=== PATIENT | male | born 1960 | race Caucasian/White ===

== ENCOUNTER 2016-06-10 22:36 | Inpatient (IN) | payer BC ==
[~2016-06-10] VITALS: Ht 162.6 cm; Wt 64.9 kg
[2016-06-10 22:40] VITALS: BP 173/81; PULSE 77; RESP 20; RESP 21; TEMP 98.1; O2SAT 98; O2SAT 99
[2016-06-10 23:00] VITALS: BP 169/75; PULSE 74; RESP 16; O2SAT 99
[2016-06-10] MEDS: NITROGLYCERIN 0.4 MG SL 25 TABS/BTL SL SCH ×3 (23:20→23:40)
[2016-06-10 23:30] LABS: AUTOMATED NEUTROPHIL # 9.4 TH/MM3 (1.8-7.7); BASOPHIL # 0.1 TH/MM3 (0-0.2); BASOPHIL % 0.7 % (0.0-2.0); EOSINOPHIL # 0.2 TH/MM3 (0-0.4); EOSINOPHIL % 1.3 % (0.0-4.0); HEMATOCRIT 41.3 % (39.0-51.0); HEMO FLAGS DIFF FINAL; LYMPH % 26.1 % (9.0-44.0); LYMPHOCYTE # 3.8 TH/MM3 (1.0-4.8); MEAN CELL VOLUME 92.6 FL (80.0-100.0); MEAN CORPUSCULAR HEMOGLOBIN 30.4 PG (27.0-34.0); MEAN CORPUSCULAR HGB CONC 32.9 % (32.0-36.0); MONO % 7.4 % (0.0-8.0); NEUT % 64.5 % (16.0-70.0); PLATELET COUNT 191 TH/MM3 (150-450); RED BLOOD COUNT 4.46 MIL/MM3 (4.50-5.90); RED CELL DISTRIBUTION WIDTH 13.7 % (11.6-17.2); WHITE BLOOD COUNT 14.5 TH/MM3 (4.0-11.0)
[2016-06-10] MEDS ORDERED: HEPARIN-D5W INJ 250 ML IV SCH (23:30)
[2016-06-10] MEDS ORDERED: HEPARIN SODIUM - IV 10,000 UNITS/10 ML VIAL IV ONE (23:30)
[2016-06-10] MEDS ORDERED: ONDANSETRON HCL 4 MG/2 ML VIAL ONE (23:35)
--- NOTE | 2016-06-10 23:35 | PD ---
HPI Chief Complaint: Chest Pain Time Seen by Provider: 22:59 Travel History International Travel<30 days: No Contact w/Intl Traveler<30days: No Traveled to known affect area: No History of Present Illness HPI Patient is a 56-year-old male who presents to emergency room with complaints of chest pain. Patient reports that he woke up around 9 PM tonight from sleep and had pressure to his chest, reports that the pressure radiates to his right arm, reports that he felt diaphoretic and nauseous with his symptoms. Patient reports that he has never had chest pain in the past, denies history of hypertension, hyperlipidemia, diabetes, coronary artery disease. Patient reports that he was seen by his primary care doctor December s/ preoperative for hernia surgery and was told that he was fine and that everything was okay. Patient reports that he did receive an aspirin by EMS as well as a spray of SL nitroglycerin which seemed to help with his symptoms. Patient reports that he still continued to have increased pressure to his chest at this time. Patient endorses that his mother had history of CA and history of bypass surgery at age 51. [facility] Family History Family Myocardial Infarction: Yes (mom had CAD and bypass surgery at age 51) Social History Tobacco Use: Yes Allergies-Medications (Allergen,Severity, Reaction): Coded Allergies: Penicillin (Verified Allergy, Unknown, Hives, 06/10/16) Reported Meds & Prescriptions Reported Meds & Active Scripts Active No Active Prescriptions or Reported Medications Review of Systems General / Constitutional: No: Fever Eyes: No: Visual changes HENT: No: Headaches Cardiovascular: Positive: Chest Pain or Discomfort, Diaphoresis Respiratory: Positive: Shortness of Breath Gastrointestinal: No: Abdominal Pain Genitourinary: No: Dysuria Musculoskeletal: No: Pain Skin: No Rash Neurologic: No: Weakness Psychiatric: No: Depression Endocrine: No: Polydipsia Hematologic/Lymphatic: No: Easy Bruising Physical Exam Narrative GENERAL: On her distress SKIN: Focused skin assessment warm/dry. HEAD: Atraumatic. Normocephalic. EYES: Pupils equal and round. No scleral icterus. No injection or drainage. ENT: No nasal bleeding or discharge. Mucous membranes pink and moist. NECK: Trachea midline. No JVD. CARDIOVASCULAR: Regular rate and rhythm. No murmur appreciated. RESPIRATORY: No accessory muscle use. Clear to auscultation. Breath sounds equal bilaterally. GASTROINTESTINAL: Abdomen soft, non-tender, nondistended. Hepatic and splenic margins not palpable. MUSCULOSKELETAL: No obvious deformities. No clubbing. No cyanosis. No edema. NEUROLOGICAL: Awake and alert. Motor grossly within normal limits. Normal speech. PSYCHIATRIC: Appropriate mood and affect; insight and judgment normal. Data Data Last Documented VS Vital Signs Date Time Temp Pulse Resp B/P Pulse Ox O2 Delivery O2 Flow Rate FiO2 06/10/16 22:40 98.1 77 20 173/81 98 06/10/16 22:40 Room Air 06/10/16 22:40 2 Orders B-Type Natriuretic Peptide (06/10/16 22:57) Ckmb (Isoenzyme) Profile (06/10/16 22:57) Complete Blood Count With Diff (06/10/16 22:57) Comprehensive Metabolic Panel (06/10/16 22:57) Magnesium (Mg) (06/10/16 22:57) Prothrombin Time / Inr (Pt) (06/10/16 22:57) Act Partial Throm Time (Ptt) (06/10/16 22:57) Troponin I (06/10/16 22:57) Chest, Single Ap (06/10/16 22:57) Ecg Monitoring (06/10/16 22:57) Bilateral Bp Monitoring (06/10/16 22:57) Iv Access Insert/Monitor (06/10/16 22:57) Oximetry (06/10/16 22:57) Nitroglycerin Sl (Nitrostat Sl) (06/10/16 23:30) Heparin Infusion ADRIA.Q1H (06/10/16 23:22) Heparin Inj (Heparin Inj) (06/11/16 05:30) Heparin Inj (Heparin Inj) (06/11/16 05:30) Heparin-D5w Inj (Heparin-D5w Inj) (06/10/16 23:30) Cbc No Diff, Includes Plts (06/13/16 06:00) Act Partial Throm Time (Ptt) (06/11/16 06:22) Occult Blood (Hemoccult) Stool (06/10/16 23:22) Heparin Inj (Heparin Inj) (06/10/16 23:30) Consult Cardiology (06/10/16 ) Ondansetron Inj (Zofran Inj) (06/10/16 23:45) Ondansetron Inj (Zofran Inj) (06/10/16 23:35) (Hub Use Only)Inp Phy Cons/Ref (06/10/16 ) CKMB (06/10/16 22:50) CKMB% (06/10/16 22:50) Nitroglycerin-Dextrose Inj (Nitroglyceri (06/11/16 00:30) Labs Laboratory Tests Test 06/10/16 22:50 White Blood Count 14.5 TH/MM3 Red Blood Count 4.46 MIL/MM3 Hemoglobin 13.6 GM/DL Hematocrit 41.3 % Mean Corpuscular Volume 92.6 FL Mean Corpuscular Hemoglobin 30.4 PG Mean Corpuscular Hemoglobin 32.9 % Concent Red Cell Distribution Width 13.7 % Platelet Count 191 TH/MM3 Mean Platelet Volume 8.9 FL Neutrophils (%) (Auto) 64.5 % Lymphocytes (%) (Auto) 26.1 % Monocytes (%) (Auto) 7.4 % Eosinophils (%) (Auto) 1.3 % Basophils (%) (Auto) 0.7 % Neutrophils # (Auto) 9.4 TH/MM3 Lymphocytes # (Auto) 3.8 TH/MM3 Monocytes # (Auto) 1.1 TH/MM3 Eosinophils # (Auto) 0.2 TH/MM3 Basophils # (Auto) 0.1 TH/MM3 CBC Comment DIFF FINAL Differential Comment B-Type Natriuretic Peptide 6 PG/ML Prothrombin Time 9.4 SEC Prothromb Time International 0.9 RATIO Ratio Activated Partial 24.8 SEC Thromboplast Time Sodium Level 143 MEQ/L Potassium Level 3.9 MEQ/L Chloride Level 107 MEQ/L Carbon Dioxide Level 27.5 MEQ/L Anion Gap 9 MEQ/L Blood Urea Nitrogen 14 MG/DL Creatinine 0.99 MG/DL Estimat Glomerular Filtration 78 ML/MIN Rate Random Glucose 112 MG/DL Calcium Level 8.6 MG/DL Magnesium Level 2.3 MG/DL Total Bilirubin 0.4 MG/DL Aspartate Amino Transf 51 U/L (AST/SGOT) Alanine Aminotransferase 113 U/L (ALT/SGPT) Alkaline Phosphatase 100 U/L Total Creatine Kinase 102 U/L Creatine Kinase MB 1.3 NG/ML Troponin I LESS THAN 0.02 NG/ML Total Protein 6.5 GM/DL Albumin 3.6 GM/DL MDM Medical Decision Making Medical Screen Exam Complete: Yes Emergency Medical Condition: Yes Interpretation(s) Vital Signs Date Time Temp Pulse Resp B/P Pulse Ox O2 Delivery O2 Flow Rate FiO2 06/10/16 22:40 98.1 77 20 173/81 98 EKG at 2249: Normal sinus rhythm at 66 bpm, QT/QTC 362/375, 1mm st seg elevation in V1 and V2 with no reciprical changes EKG at 2311: NSR at 77bpm, qt/qtc: 354/385, [address] segment elevation in V1 and V2 with no reciprical changes Differential Diagnosis ACS, arrhythmia, PE, pneumothorax, electrolyte abnormality Narrative Course Patient is 56-year-old male who presents to emergency with complaints of chest pain. Patient reports that he woke up from sleep around 9 PM with pain across his chest radiating into his right arm. Patient reports that pain feels like a "pressure to his chest", he associates this with diaphoresis and nausea with his symptoms. Patient reported some relief with 1SL nitro by EMS. Patient continues to have symptoms while in the emergency room. Patient was placed on a vehicle monitor technician upon arrival to emergency room. X-ray the chest as well as labwork ordered. Call made to coat finisher Dr. Kramer to review case, request heparin, heparin drip, nitro drip, plan to treat him aggressively admit him to the [facility] Patient currently chest pain-free at this time Case reviewed with who accepts pt to service Critical Care Narrative Aggregate critical care time was 30 minutes. Time to perform other separately billable procedures was not included in the critical care time. My time did not include minutes spent treating any other patients simultaneously or on activities that did not directly contribute to the patient's treatment. The services I provided to this patient were to treat and/or prevent clinically significant deterioration that could result in: , decompensation, deterioration I provided critical care services requiring my management, as noted below: Chart data review, documentation time, medication orders and management, vital sign assessments/reviewing monitor data, ordering and reviewing lab tests, ordering and interpreting/reviewing x-rays and diagnostic studies, care of the patient and discussion of the patient with the admitting physicians. Diagnosis Primary Impression: Unstable angina Admitting Information Admitting Physician Requests: Admit Scripts No Active Prescriptions or Reported Meds Penny Heller DO Jun 10, 2016 23:35
[2016-06-10] MEDS ORDERED: ONDANSETRON HCL 4 MG/2 ML VIAL IV PUSH ONE (23:45)
[2016-06-10 23:49] LABS: ALKALINE PHOSPHATASE 100 U/L (45-117); CREATINE KINASE 102 U/L (39-308); TOTAL BILIRUBIN ADULT 0.4 MG/DL (0.2-1.0)
--- NOTE | 2016-06-10 23:49 | RADRPT ---
EXAM DATE/TIME: 06/10/2016 23:11 [place] COMPARISON: No previous studies available for comparison. INDICATIONS : Chest pressure. MEDICAL HISTORY : None. SURGICAL HISTORY : None. ENCOUNTER: Initial ACUITY: 1 day PAIN SCORE: 3/10 LOCATION: Bilateral chest FINDINGS: A single view of the chest demonstrates the lungs to be symmetrically aerated without evidence of mas s, infiltrate or effusion. The cardiomediastinal contours are unremarkable. Osseous structures are intact. CONCLUSION: No acute disease. Jermaine Santos MD on June 10, 2016 at 23:47 Board Certified Radiologist. This report was verified electronically.
[2016-06-11] VITALS (20 sets, daily range): BP systolic 99–154; BP diastolic 58–89; PULSE 61–89; RESP 14–18; TEMP 98–98.7; O2SAT 96–98
[2016-06-11] LABS: ALT (GPT) 113 U/L (12-78); ANION GAP 9 MEQ/L (5-15); AST (GOT) 51 U/L (15-37); BICARBONATE 27.5 MEQ/L (21.0-32.0); BLOOD UREA NITROGEN 14 MG/DL (7-18); CHLORIDE 107 MEQ/L (98-107); GLOMERULAR FILTRATION RATE 78 ML/MIN (>89); MAGNESIUM 2.3 MG/DL (1.5-2.5); POTASSIUM 3.9 MEQ/L (3.5-5.1); SODIUM (NA) 143 MEQ/L (136-145)
[2016-06-11 00:01] LABS: CKMB 1.3 NG/ML (0.5-3.6)
[2016-06-11 00:10] LABS: APTT (PATIENT) 24.8 SEC (24.3-30.1); INTERNATIONAL NORMALIZED RATIO 0.9 RATIO; PROTHROMBIN TIME - PATIENT 9.4 SEC (9.8-11.6)
[2016-06-11] MEDS ORDERED: NITROGLYCERIN-DEXTROSE INJ 250 ML IV SCH (00:30)
[2016-06-11] MEDS ORDERED: MORPHINE SULFATE 4 MG/ML INJ IV PUSH PRN (01:00)
[2016-06-11] MEDS ORDERED: SODIUM CHLORIDE 0.9% FLUSH 10 ML FLUSH IV FLUSH PRN (01:00)
[2016-06-11] MEDS ORDERED: NALOXONE HCL 0.4 MG/ML AMP IV PRN (01:00)
[2016-06-11] MEDS ORDERED: ACETAMINOPHEN 325 MG TAB PO PRN ×2 (01:00→15:45)
[2016-06-11] MEDS ORDERED: ONDANSETRON HCL 4 MG/2 ML VIAL IVP PRN ×2 (01:00→15:45)
[2016-06-11] MEDS: SODIUM CHLOR 0.9% 1000 ML INJ 1,000 ML IV SCH ×2 (02:53→20:53)
--- NOTE | 2016-06-11 04:37 | HHI.HP ---
[facility] Service [place] [facility] Primary Care Physician Non-Staff Admission Diagnosis Unstable Angina Diagnoses: Chief Complaint: Chest pain Travel History International Travel<30 Days: No Contact w/Intl Traveler <30 Da: No Traveled to Known Affected Are: No History of Present Illness This is a pleasant 56-year-old male patient who denies prior medical history. Does smoke cigarettes proximal one pack per day and has a family medical history his mother had a coronary artery bypass graft at 51 years old. Patient is currently here on vacation from [place]. Patient drove from [place] arrived Thursday 2 days ago. Patient reports he awoke from sleep with severe midsternal pressure like chest pain associated with bilateral upper extremity numbness, SOB and diaphoresis. Patient waited about 30 mins pain and symptoms did not resolve. Patient then call 911 was given nitroglycerin spray by EMS which lessened his chest pain but it did not resolve completely. Chest pain resolved after arrival to the ER and additional nitroglycerin. At this time patient denies chest pain shortness of breath nausea vomiting diarrhea constipation fevers or chills. Of note patient was on Prednisone last week for R shoulder pain. EKG upon arrival to the emergency department reviewed and reveals sinus rhythm rate of [address] elevation in V1 and V2- no reciprocal changes appreciated Review of Systems Except as stated in HPI: all other systems reviewed are Neg Past Family Social History Past Medical History denies prior medical history Past Surgical History L inguinal hernia repair Reported Medications No Active Prescriptions or Reported Medications Allergies: Coded Allergies: Penicillin (Verified Allergy, Unknown, Hives, 06/10/16) Active Ordered Medications Current Medications Medications (Trade) Dose Ordered Sig/Roxana Route Start Time Stop Time Status Last Admin (Heparin Inj) 5,000 units UNSCH PRN IV 06/11/16 05:30 Heparin Sodium (Porcine) 2500 units 2,500 units UNSCH PRN IV 06/11/16 05:30 Heparin Sodium/ Dextrose 250 ml @ 0 mls/hr TITRATE IV 06/10/16 23:30 06/10/16 23:35 Nitroglycerin/ Dextrose 250 ml @ 0 mls/hr TITRATE IV 06/11/16 00:30 06/11/16 00:43 (NS 1000 ml Inj) 1,000 ml @ 50 mls/hr Q20H IV 06/11/16 00:53 06/11/16 02:53 (NS Flush) 2 ml UNSCH PRN IV FLUSH 06/11/16 01:00 (NS Flush) 2 ml BID IV FLUSH 06/11/16 09:00 (Tylenol) 650 mg Q4H PRN PO 06/11/16 01:00 (Zofran Inj) 4 mg Q6H PRN IVP 06/11/16 01:00 (Narcan Inj) 0.4 mg UNSCH PRN IV 06/11/16 01:00 (Morphine Inj) 2 mg Q3H PRN IV PUSH 06/11/16 01:00 Family History Mother had CAD- CABG 51 years old Social History ETOH beer 2-3 per week Tobacco use 1 PPD Physical Exam Vital Signs Vital Signs Date Time Temp Pulse Resp B/P Pulse Ox O2 Delivery O2 Flow Rate FiO2 06/11/16 01:58 98 Nasal Cannula 2.00 06/10/16 22:40 98.1 77 20 173/81 98 06/10/16 22:40 77 21 97 Room Air 06/10/16 22:40 21 99 Nasal Cannula 2 Physical Exam GENERAL: This is a well-nourished, well-developed patient, in no apparent distress. SKIN: No rashes, ecchymoses or lesions. Cool and dry. HEAD: Atraumatic. Normocephalic. No temporal or scalp tenderness. EYES: Extraocular motions intact. No scleral icterus. No injection or drainage. CARDIOVASCULAR: Regular rate and rhythm without murmurs, gallops, or rubs. RESPIRATORY: Clear to auscultation. Breath sounds equal bilaterally. No wheezes , rales, or rhonchi. GASTROINTESTINAL: Abdomen soft, non-tender, nondistended. No guarding. MUSCULOSKELETAL: Extremities without clubbing, cyanosis, or edema. No joint tenderness, effusion, or edema noted. No calf tenderness. Negative Homans sign bilaterally. NEUROLOGICAL: Awake and alert. no focal deficits. Motor and sensory grossly within normal limits. Five out of 5 muscle strength in all muscle groups. Normal speech. Laboratory Laboratory Tests Test 06/10/16 22:50 White Blood Count 14.5 Red Blood Count 4.46 Hemoglobin 13.6 Hematocrit 41.3 Mean Corpuscular Volume 92.6 Mean Corpuscular Hemoglobin 30.4 Mean Corpuscular Hemoglobin 32.9 Concent Red Cell Distribution Width 13.7 Platelet Count 191 Mean Platelet Volume 8.9 Neutrophils (%) (Auto) 64.5 Lymphocytes (%) (Auto) 26.1 Monocytes (%) (Auto) 7.4 Eosinophils (%) (Auto) 1.3 Basophils (%) (Auto) 0.7 Neutrophils # (Auto) 9.4 Lymphocytes # (Auto) 3.8 Monocytes # (Auto) 1.1 Eosinophils # (Auto) 0.2 Basophils # (Auto) 0.1 CBC Comment DIFF FINAL Differential Comment B-Type Natriuretic Peptide 6 Prothrombin Time 9.4 Prothromb Time International 0.9 Ratio Activated Partial 24.8 Thromboplast Time Sodium Level 143 Potassium Level 3.9 Chloride Level 107 Carbon Dioxide Level 27.5 Anion Gap 9 Blood Urea Nitrogen 14 Creatinine 0.99 Estimat Glomerular Filtration 78 Rate Random Glucose 112 Calcium Level 8.6 Magnesium Level 2.3 Total Bilirubin 0.4 Aspartate Amino Transf 51 (AST/SGOT) Alanine Aminotransferase 113 (ALT/SGPT) Alkaline Phosphatase 100 Total Creatine Kinase 102 Creatine Kinase MB 1.3 Troponin I LESS THAN 0.02 Total Protein 6.5 Albumin 3.6 Result Diagram: 06/10/16224906/10/162249 Assessment and Plan Assessment and Plan This is a pleasant 56-year-old male patient who denies prior medical history. Does smoke cigarettes proximal one pack per day and has a family medical history his mother had a coronary artery bypass graft at 51 years old. Patient is currently here on vacation from [place]. Patient drove from [place] arrived Thursday 2 days ago. Patient reports he awoke from sleep with severe midsternal chest pain associated with bilateral upper extremity numbness, SOB and diaphoresis. Unstable angina/ STEMI EKG reviewed by myself as well as Dr. Paul reveals sinus rhythm rate [address] elevation in V1 and V2 no reciprocal changes appreciated initial troponin < 0.02 continue with serial troponin serial EKGs Lipid profile- but had not initiated statin therapy as ALT is 51 and AST 113 Consult cardiology- ER MD spoke with cardiology recommended nitro drip and hep drip Recent extended travel d dimer pending Leukocytosis with blood cell count 14.5- no signs of active infection likely reactive continue to monitor denies dysuria Chest x-ray reviewed by myself as well as Dr. Paul and reveals no acute disease process DVT prophylaxis patient is currently on heparin drip Discussed with ER provider, nursing and patient Written by Qing Curtis, acting as scribe for Dr. Paul on 06/11/16 at 04: 57. This note was transcribed by scribe [Qing Curtis]. I, Dr. Luly Paul personally performed the history, physical exam, and medical decision making; and confirmed the accuracy of the information in the transcribed note. Authenticated by Dr. Luly Paul on 06/11/16 at 04:57. Physician Certification 2 Midnight Certification Type: Admission for Inpatient Services Order for Inpatient Services The services are ordered in accordance with Medicare regulations or non- Medicare payer requirements, as applicable. In the case of services not specified as inpatient-only, they are appropriately provided as inpatient services in accordance with the 2-midnight benchmark. Estimated LOS (days): 3 days is the estimated time the patient will need to remain in the hospital, assuming treatment plan goals are met and no additional complications. Post-Hospital Plan: Home Qing Curtis Jun 11, 2016 04:37 Luly Paul MD June 30, 2016 04:58
[2016-06-11 05:06] LABS: APTT (PATIENT) 31.9 SEC (24.3-30.1)
[2016-06-11 05:27] LABS: ALT (GPT) 139 U/L (12-78); ANION GAP 8 MEQ/L (5-15); AST (GOT) 83 U/L (15-37); BICARBONATE 24.1 MEQ/L (21.0-32.0); BLOOD UREA NITROGEN 13 MG/DL (7-18); CHLORIDE 108 MEQ/L (98-107); GLOMERULAR FILTRATION RATE 90 ML/MIN (>89); POTASSIUM 4.5 MEQ/L (3.5-5.1); SODIUM (NA) 140 MEQ/L (136-145)
[2016-06-11 05:30] LABS: ALKALINE PHOSPHATASE 105 U/L (45-117); TOTAL BILIRUBIN ADULT 0.7 MG/DL (0.2-1.0)
[2016-06-11] MEDS ORDERED: HEPARIN SODIUM - IV 10,000 UNITS/10 ML VIAL IV PRN ×2 (05:30)
[2016-06-11] MEDS: SODIUM CHLORIDE 0.9% FLUSH 10 ML FLUSH IV FLUSH SCH ×2 (09:29→20:22)
[2016-06-11] MEDS: CARVEDILOL 3.125 MG TAB PO SCH ×2 (09:29→20:21)
[2016-06-11] MEDS ORDERED: IOHEXOL 350 MG/ML 100 ML BTL (for Cath Lab) OTHER ONE (10:24)
--- NOTE | 2016-06-11 11:45 | EKG ---
Date Performed: 06/11/2016 Time Performed: 05:05:47 PTAGE: 56 years EKG: Sinus rhythm BORDERLINE LEFT AXIS DEVIATION POSSIBLE RIGHT VENTRICULAR CONDUCTION DELAY BORDERLINE ECG PREVIOUS TRACING : 06/10/2016 22.49 DOCTOR: Kane Olmedo Interpretating Date/Time 06/11/2016 11:43:40
--- NOTE | 2016-06-11 11:54 | EKG ---
Date Performed: 06/10/2016 Time Performed: 23:11:12 PTAGE: 56 years EKG: Sinus rhythm POSSIBLE RIGHT VENTRICULAR CONDUCTION DELAY BORDERLINE ECG NO PREVIOUS TRACING DOCTOR: Kane Olmedo Interpretating Date/Time 06/11/2016 11:51:01
--- NOTE | 2016-06-11 11:55 | EKG ---
Date Performed: 06/10/2016 Time Performed: 22:49:01 PTAGE: 56 years EKG: Sinus rhythm POSSIBLE RIGHT VENTRICULAR CONDUCTION DELAY SEPTAL MYOCARDIAL INFARCTION ABNORMAL ECG NO PREVIOUS TRACING DOCTOR: Kane Olmedo Interpretating Date/Time 06/11/2016 11:51:05
[2016-06-11] MEDS ORDERED: HEPARIN-NS/PF INJ 500 ML ONE (13:46)
[2016-06-11] MEDS ORDERED: MIDAZOLAM HCL 2 MG/2 ML VIAL ONE (13:48)
[2016-06-11] MEDS ORDERED: VERAPAMIL HCL 5 MG/2 ML VIAL ONE (13:49)
[2016-06-11] MEDS ORDERED: HEPARIN SODIUM - IV 10,000 UNITS/10 ML VIAL ONE (13:50)
[2016-06-11] MEDS ORDERED: NITROGLYCERIN INJ 5 ML ONE (13:50)
[2016-06-11 14:38] LABS: HDL CHOLESTEROL 51.6 MG/DL (40.0-60.0)
[2016-06-11] MEDS ORDERED: SODIUM CHLOR 0.9% 250 ML INJ 250 ML ONE (15:12)
[2016-06-11] MEDS ORDERED: VANCOMYCIN HCL 1000 MG VIAL ONE (15:12)
[2016-06-11] MEDS ORDERED: TICAGRELOR 90 MG TAB PO ONE (15:15)
[2016-06-11] MEDS ORDERED: ASPIRIN 325 MG TAB ONE (15:44)
[2016-06-11] MEDS ORDERED: oxyCODONE/ACETAMINOPHEN 5 MG/325 MG TAB PO PRN (15:45)
[2016-06-11] MEDS ORDERED: oxyCODONE/ACETAMINOPHEN 10 MG/325 MG TAB PO PRN (15:45)
[2016-06-11] MEDS ORDERED: MISC INFORMATION XX ONE (15:45)
[2016-06-11] MEDS: TICAGRELOR 90 MG TAB PO SCH (20:22)
[2016-06-11] MEDS ORDERED: ATORVASTATIN 80 MG TAB PO SCH (21:00)
--- NOTE | 2016-06-11 21:02 | EC ---
Study Study Date:06/11/2016 STUDY CONCLUSIONS SUMMARY LEFT VENTRICLE: The cavity size was normal. Systolic function was normal. The estimated ejection fraction was in the range of 55% to 60%. Wall motion was normal; there were no regional wall motion abnormalities. Left ventricular diastolic function parameters were normal. If LV function is below 40, please consider prescribing an ACEI or ARB or document rationale for non-use. PROCEDURE DATA STUDY STATUS: Elective. Procedure: Transthoracic echocardiography. Image quality was good. Scanning was performed from the parasternal, apical, and subcostal acoustic windows. Study completion: The patient tolerated the procedure well. Transthoracic echocardiography. M-mode, complete 2D, complete spectral Doppler, and color Doppler. Height: Height: 65in. Weight: Weight: 144.7lb. Body mass index: BMI: 24.1kg/m^2. Body surface area: BSA: 1.73m^2. Patient status: Inpatient. CARDIAC ANATOMY LEFT VENTRICLE: The cavity size was normal. There was no hypertrophy. Systolic function was normal. The estimated ejection fraction was in the range of 55% to 60%. Wall motion was normal; there were no regional wall motion abnormalities. Left ventricular diastolic function parameters were normal. AORTIC VALVE: The valve appears to be grossly normal. Probably trileaflet. Doppler: There was no stenosis. No significant regurgitation. Valve area: 2.11cm^2 (Vmax). Indexed valve area: 1.22cm^2/m^2 (Vmax). Peak gradient: 11mm Hg (S). MITRAL VALVE: The valve appears to be grossly normal. Doppler: There was no evidence for stenosis. Trace regurgitation. Valve area by pressure half-time: 2.72cm^2. Indexed valve area by pressure half-time: 1.57cm^2/m^2. Mean gradient: 2mm Hg (D). Peak gradient: 5mm Hg (D). LEFT ATRIUM: The atrium was normal in size. RIGHT VENTRICLE: The cavity size was normal. PULMONIC VALVE: Not well visualized. Doppler: There was no evidence for stenosis. No significant regurgitation. TRICUSPID VALVE: The valve appears to be grossly normal. Doppler: There was no evidence for stenosis. Trace regurgitation. Peak gradient: 13mm Hg (D). PERICARDIUM: There was no pericardial effusion. Patient weight: 144.7lb _Ejection fraction:_ 65-75% _Fractional shortening:_ 32% up to 5Kg 5-11.5Kg 11.6-22.9Kg 23-45Kg 45-57Kg Aortic Root 7-13 <17 13-22 17-27 17-27 LA diam 6-13 <23 24-38 33-47 37-40 RVID 10-17 7-15 7-15 7-18 8-17 LVIDd 12-22 <32 24-38 33-47 37-40 LVPW 2-4 3-6 5-7 6-8 7-8 IVS 2-4 3-6 5-7 6-8 7-8 BASIC MEASUREMENTS ADULT NORMAL Left ventricle LV internal dimension, ED, chordal *37.7 mm 43-52 level, PLAX LV internal dimension, ES, chordal 26.4 mm 23-38 level, PLAX Fractional shortening, chordal level, 30 % >29 PLAX LV posterior wall thickness, ED 11.1 mm IVS/LVPW ratio, ED 1 <1.3 Volume, ED, MOD, 1-plane 77 ml Volume, ES, MOD, 1-plane 34 ml Ejection fraction, MOD, 1-plane 56 % Stroke volume, MOD, 1-plane 43 ml Volume index, ED, MOD, 1-plane 45 ml/m^2 Volume index, ES, MOD, 1-plane 20 ml/m^2 Stroke index, MOD, 1-plane 24.9 ml/m^2 Ventricular septum Septal thickness, ED 11.1 mm Aortic valve Leaflet separation 19 mm 15-26 Left atrium Anterior-posterior dimension 33 mm Anterior-posterior dimension index 1.91 cm/m^2 <2.2 Right ventricle RV internal dimension, ED, PLAX 26 mm 19-38 BASIC MEASUREMENTS ADULT NORMAL Aortic valve Leaflet separation 19 mm 15-26 Aorta Root diameter, ED 30 mm 20-37 DOPPLER MEASUREMENTS ADULT NORMAL Aortic valve Peak velocity, S 164 cm/s VTI, S 34.8 cm Peak gradient, S 11 mm Hg Valve area, Vmax 2.11 cm^2 Valve area index, Vmax 1.22 cm^2/m^2 Mitral valve Peak E-wave velocity 96.7 cm/s Peak A-wave velocity 82.9 cm/s Mean velocity, D 69.3 cm/s Pressure half-time 81 ms Mean gradient, D 2 mm Hg Peak gradient, D 5 mm Hg Peak E/A ratio 1.2 Valve area, pressure half-time 2.72 cm^2 Valve area index, pressure half-time 1.57 cm^2/m^2 Tricuspid valve Peak gradient, D 13 mm Hg Maximal inflow velocity 178 cm/s Systemic veins Estimated CVP 10 mm Hg Pulmonic valve Peak velocity, S 102 cm/s LEGEND: Mean values are shown as u=mean value. Asterisk (*) mckeon values outside specified normal range. Prepared and signed by Jose Raul Bryan [id number]
[2016-06-12] VITALS (11 sets, daily range): BP systolic 136–138; BP diastolic 75–88; PULSE 57–90; RESP 14–18; TEMP 98–98.8; O2SAT 98
[2016-06-12 06:14] LABS: AUTOMATED NEUTROPHIL # 6.8 TH/MM3 (1.8-7.7); BASOPHIL # 0.1 TH/MM3 (0-0.2); BASOPHIL % 0.6 % (0.0-2.0); EOSINOPHIL # 0.2 TH/MM3 (0-0.4); EOSINOPHIL % 1.4 % (0.0-4.0); HEMATOCRIT 39.5 % (39.0-51.0); HEMO FLAGS DIFF FINAL; LYMPHOCYTE # 2.5 TH/MM3 (1.0-4.8); MEAN CELL VOLUME 93.5 FL (80.0-100.0); MEAN CORPUSCULAR HEMOGLOBIN 30.9 PG (27.0-34.0); MEAN CORPUSCULAR HGB CONC 33.1 % (32.0-36.0); MONO % 9.9 % (0.0-8.0); NEUT % 64.1 % (16.0-70.0); PLATELET COUNT 167 TH/MM3 (150-450); RED BLOOD COUNT 4.22 MIL/MM3 (4.50-5.90); RED CELL DISTRIBUTION WIDTH 14.1 % (11.6-17.2); WHITE BLOOD COUNT 10.6 TH/MM3 (4.0-11.0)
[2016-06-12 07:06] LABS: TOTAL BILIRUBIN ADULT 1.1 MG/DL (0.2-1.0)
--- NOTE | 2016-06-12 07:22 | MB ---
cc: JOSE RAUL PAULINO DO DATE OF CONSULTATION June 11, 2016 REASON FOR CONSULTATION N-STEMI. HISTORY OF PRESENT ILLNESS Jermaine Maradiaga is a pleasant 56-year-old male who presented to [facility] on June 10, 2016, due to chest pain. He is vacationing here from [place] and drove down here a few days before. He was at home and he was awoken from sleep with severe midsternal chest pain and bilateral upper extremity numbness. He also was short of breath and diaphoretic with the episode. He waited for about 30 per minutes and his symptoms did not resolve so he called 9-1-1. He was given nitroglycerin spray by EMS which lessened his chest pain. While in the emergency room, he was started on a heparin drip and nitro drip which relieved his chest pain. He did have mild elevation of his ST segments in V1 and V2 but no reciprocal changes. In seeing him this morning he is currently chest pain-free without shortness of breath. PAST MEDICAL HISTORY Denies. PAST SURGICAL HISTORY Left inguinal hernia repair. ALLERGIES PENICILLIN. MEDICATIONS Denies. FAMILY HISTORY Mother had a history of coronary artery disease with coronary artery bypass grafting at the age of 51. SOCIAL HISTORY Drinks two to three beers per week. Denies drug abuse. Does smoke one pack per day. REVIEW OF SYSTEMS Fourteen systems were reviewed including osteopathic pertinent positives and negatives above, otherwise negative. PHYSICAL EXAMINATION VITAL SIGNS: Temperature 98.6, heart rate 70, blood pressure 108/71, respirations 18, pulse ox 96% on room air. GENERAL: The patient appears well, in no acute distress, alert, awake and oriented x 3. Extraocular muscles intact. Mucous membranes moist. NECK: Supple. No JVD at 45 degrees. No carotid bruits heard bilaterally. Carotid upstroke is brisk in nature. HEART: Regular rate and rhythm. Positive first and second heart sounds with no noted murmurs, gallops or rubs. LUNGS: Clear to auscultation bilaterally. No wheezes, rales or rhonchi. ABDOMEN: Soft, nontender, nondistended. No organomegaly noted. EXTREMITIES: No clubbing, cyanosis or edema. Femoral and distal pulses intact bilaterally. NEUROLOGIC: No focal deficits. SKIN: Warm, dry and intact. OSTEOPATHIC EXAM: No kyphoscoliosis, lordosis or paraspinal tender points. LABORATORY FINDINGS Hemoglobin 13.6, hematocrit 41.3, platelets 191. Potassium 4.5, BUN 13, creatinine 0.87. Troponin 2.79. Triglycerides 148, total cholesterol 243, LDL 162, HDL 51.6. ELECTROCARDIOGRAM (June 11, 2016 at 05:05) Sinus rhythm, borderline left axis deviation, right ventricular conduction delay. IMPRESSION 1. N-STEMI. 2. Premature coronary artery disease within the family with his mother having coronary artery bypass grafting at the age of 51. 3. Chest pain concerning for coronary insufficiency. 4. Tobacco abuse. RECOMMENDATIONS 1. Mr. Maradiaga presented with chest pain and an elevation of his troponins. Because of this he was recommended cardiac catheterization. He understands the risks, benefits and alternatives and consents as such. 2. We will check a 2-D echo to look at his overall left ventricular function, cardiac structure and possible valvopathies. 3. I spoke to him for greater than 3 minutes about tobacco cessation which he will attempt to quit at this time. 4. Further recommendations will be made after coronary visualization. Thank you for allowing me to see Jermaine Maradiaga. If there are any questions, please do not hesitate to call. Jose Raul Paulino DO VGP/SSB /12:29 AM /7:14 AM
[2016-06-12] MEDS ORDERED: CARV3.125 PO (08:56)
[2016-06-12] MEDS ORDERED: BRIL90TA PO (08:56)
[2016-06-12] MEDS ORDERED: LISI-519 PO (08:56)
[2016-06-12] MEDS ORDERED: ATOR1TAB18 PO (08:56)
[2016-06-12] MEDS ORDERED: Aspirin Chew PO (08:56)
[2016-06-12] MEDS ORDERED: LISINOPRIL 5 MG TAB PO SCH (09:00)
[2016-06-12] MEDS ORDERED: ASPIRIN 81 MG CHEW TAB PO SCH (09:00)
[2016-06-12] MEDS: CARVEDILOL 3.125 MG TAB PO SCH (09:12)
[2016-06-12] MEDS: SODIUM CHLORIDE 0.9% FLUSH 10 ML FLUSH IV FLUSH SCH (09:13)
[2016-06-12] MEDS: TICAGRELOR 90 MG TAB PO SCH (09:13)
--- NOTE | 2016-06-12 10:56 | PD.CARD.PN ---
Subjective Subjective Remarks No chest pain, no shortness of breath Objective Medications Current Medications Medications (Trade) Dose Ordered Sig/Roxana Route Start Time Stop Time Status Last Admin Nitroglycerin/ Dextrose 250 ml @ 0 mls/hr TITRATE IV 06/11/16 00:30 06/11/16 00:43 (NS 1000 ml Inj) 1,000 ml @ 50 mls/hr Q20H IV 06/11/16 00:53 06/11/16 02:53 (NS Flush) 2 ml UNSCH PRN IV FLUSH 06/11/16 01:00 (NS Flush) 2 ml BID IV FLUSH 06/11/16 09:00 06/12/16 09:13 (Tylenol) 650 mg Q4H PRN PO 06/11/16 01:00 06/11/16 12:12 (Narcan Inj) 0.4 mg UNSCH PRN IV 06/11/16 01:00 (Morphine Inj) 2 mg Q3H PRN IV PUSH 06/11/16 01:00 (Coreg) 3.125 mg Q12HR PO 06/11/16 09:00 06/12/16 09:12 (Tylenol) 325 mg Q4H PRN PO 06/11/16 15:45 (Percocet 5-325 Mg) 1 tab Q4H PRN PO 06/11/16 15:45 (Percocet 10-325 Mg) 1 tab Q4H PRN PO 06/11/16 15:45 (Zofran Inj) 4 mg Q6H PRN IVP 06/11/16 15:45 (Aspirin Chew) 81 mg DAILY PO 06/12/16 09:00 06/12/16 09:12 (Brilinta) 90 mg BID PO 06/11/16 21:00 06/12/16 09:13 (Prinivil) 5 mg DAILY PO 06/12/16 09:00 06/12/16 09:12 (Lipitor) 80 mg HS PO 06/11/16 21:00 06/11/16 20:22 Vital Signs / I&O Vital Signs Date Time Temp Pulse Resp B/P Pulse Ox O2 Delivery O2 Flow Rate FiO2 06/12/16 10:00 75 06/12/16 09:00 89 06/12/16 08:24 72 06/12/16 08:24 98.0 69 18 138/88 98 06/12/16 07:00 57 06/12/16 06:00 60 06/12/16 05:00 60 06/12/16 04:00 66 06/12/16 03:00 98.8 74 14 136/75 98 06/12/16 03:00 62 06/12/16 02:00 62 06/12/16 01:00 90 06/12/16 00:00 66 06/11/16 23:00 63 06/11/16 23:00 98.7 66 14 99/58 97 06/11/16 23:00 96 21 06/11/16 22:00 68 06/11/16 21:00 62 06/11/16 20:00 64 06/11/16 19:00 64 06/11/16 19:00 98.0 66 14 124/74 97 06/11/16 18:31 69 06/11/16 17:20 89 06/11/16 16:00 71 06/11/16 15:53 98.4 63 18 154/89 97 06/11/16 12:04 66 06/11/16 11:45 96 21 06/11/16 11:25 98.6 70 18 108/71 96 06/11/16 11:23 61 I/O 06/11/16 06/11/16 06/11/16 06/12/16 06/12/16 06/12/16 07:00 15:00 23:00 07:00 15:00 23:00 Intake Total 480 ml 980 ml Output Total 700 ml Balance 480 ml 280 ml Intake Oral 480 ml 480 ml IV Total 500 ml Output Urine Total 700 ml # Voids 2 Physical Exam GENERAL: NAD, AAOx3 SKIN: Warm and dry. HEAD: Atraumatic. Normocephalic. EYES: Pupils equal and round. No scleral icterus. No injection or drainage. ENT: No nasal bleeding or discharge. Mucous membranes pink and moist. NECK: Trachea midline. No JVD. CARDIOVASCULAR: Regular rate and rhythm. RESPIRATORY: No accessory muscle use. Clear to auscultation. Breath sounds equal bilaterally. GASTROINTESTINAL: Abdomen soft, non-tender, nondistended. Hepatic and splenic margins not palpable. MUSCULOSKELETAL: Extremities without clubbing, cyanosis, or edema. No obvious deformities. Right radial no hematoma, neurovascularly intact distally NEUROLOGICAL: Awake and alert. No obvious cranial nerve deficits. Motor grossly within normal limits. Five out of 5 muscle strength in the arms and legs. Normal speech. PSYCHIATRIC: Appropriate mood and affect; insight and judgment normal. Laboratory Laboratory Tests Test 06/11/16 06/12/16 13:28 05:10 Troponin I 3.28 NG/ML Triglycerides Level 148 MG/DL Cholesterol Level 243 MG/DL LDL Cholesterol 162 MG/DL HDL Cholesterol 51.6 MG/DL Cholesterol/HDL Ratio 4.70 RATIO White Blood Count 10.6 TH/MM3 Red Blood Count 4.22 MIL/MM3 Hemoglobin 13.1 GM/DL Hematocrit 39.5 % Mean Corpuscular Volume 93.5 FL Mean Corpuscular Hemoglobin 30.9 PG Mean Corpuscular Hemoglobin 33.1 % Concent Red Cell Distribution Width 14.1 % Platelet Count 167 TH/MM3 Mean Platelet Volume 9.0 FL Neutrophils (%) (Auto) 64.1 % Lymphocytes (%) (Auto) 24.0 % Monocytes (%) (Auto) 9.9 % Eosinophils (%) (Auto) 1.4 % Basophils (%) (Auto) 0.6 % Neutrophils # (Auto) 6.8 TH/MM3 Lymphocytes # (Auto) 2.5 TH/MM3 Monocytes # (Auto) 1.1 TH/MM3 Eosinophils # (Auto) 0.2 TH/MM3 Basophils # (Auto) 0.1 TH/MM3 CBC Comment DIFF FINAL Differential Comment Sodium Level 140 MEQ/L Potassium Level 4.0 MEQ/L Chloride Level 108 MEQ/L Carbon Dioxide Level 25.0 MEQ/L Anion Gap 7 MEQ/L Blood Urea Nitrogen 10 MG/DL Creatinine 0.85 MG/DL Estimat Glomerular Filtration 93 ML/MIN Rate Random Glucose 87 MG/DL Calcium Level 8.5 MG/DL Total Bilirubin 1.1 MG/DL Direct Bilirubin 0.1 MG/DL Indirect Bilirubin 1.0 MG/DL Aspartate Amino Transf 35 U/L (AST/SGOT) Alanine Aminotransferase 109 U/L (ALT/SGPT) Alkaline Phosphatase 96 U/L Total Protein 6.0 GM/DL Albumin 3.1 GM/DL Assessment and Plan Problem List: (1) Unstable angina (2) CAD (coronary artery disease) Assessment and Plan 1) NSTEMI s/p KRISTI to LAD 2) ASA/Brilinta/Coreg/Lisinopril/Lipitor 3) Need Brilinta for at least 12 months, will check on how much refills will cost, if too much will call myself or his PCP to change to Plavix 4) Plan DC today Jose Raul Bryan DO Jun 12, 2016 10:55
--- NOTE | 2016-06-12 16:01 | HHI.DS ---
Discharge Summary Admission Date Jun 11, 2016 at 00:58 Discharge Date: Jun 12, 2016 Admitting Diagnosis Unstable Angina (1) CAD (coronary artery disease) ICD Code: I25.10 Diagnosis: Principal (2) Unstable angina ICD Code: I20.0 Diagnosis: Principal Procedures Cardiac catheterization with stent placement Brief History - From Admission This is a pleasant 56-year-old male patient who denies prior medical history. Does smoke cigarettes proximal one pack per day and has a family medical history his mother had a coronary artery bypass graft at 51 years old. Patient is currently here on vacation from [place]. Patient drove from [place] arrived Thursday 2 days ago. Patient reports he awoke from sleep with severe midsternal pressure like chest pain associated with bilateral upper extremity numbness, SOB and diaphoresis. Patient waited about 30 mins pain and symptoms did not resolve. Patient then call 911 was given nitroglycerin spray by EMS which lessened his chest pain but it did not resolve completely. Chest pain resolved after arrival to the ER and additional nitroglycerin. At this time patient denies chest pain shortness of breath nausea vomiting diarrhea constipation fevers or chills. Of note patient was on Prednisone last week for R shoulder pain. EKG upon arrival to the emergency department reviewed and reveals sinus rhythm rate of [address] elevation in V1 and V2- no reciprocal changes appreciated CBC/BMP: 06/12/16 0510 06/12/16 0510 Significant Findings Laboratory Tests Test 06/10/16 06/11/16 06/11/16 06/11/16 22:50 04:18 04:31 13:28 White Blood Count 14.5 TH/MM3 (4.0-11.0) Red Blood Count 4.46 MIL/MM3 (4.50-5.90) Neutrophils # (Auto) 9.4 TH/MM3 (1.8-7.7) Monocytes # (Auto) 1.1 TH/MM3 (0-0.9) Prothrombin Time 9.4 SEC (9.8-11.6) Estimat Glomerular Filtration 78 ML/MIN (>89) Rate Random Glucose 112 MG/DL (74-106) Aspartate Amino Transf 51 U/L (15-37) 83 U/L (15-37) (AST/SGOT) Alanine Aminotransferase 113 U/L (12-78) 139 U/L (12-78) (ALT/SGPT) Troponin I LESS THAN 0.02 2.79 NG/ML 3.28 NG/ML NG/ML (0.02-0.05) (0.02-0.05) (0.02-0.05) Chloride Level 108 MEQ/L (98-107) Activated Partial 31.9 SEC Thromboplast Time (24.3-30.1) Cholesterol Level 243 MG/DL (120-200) LDL Cholesterol 162 MG/DL (0-99) Test 06/12/16 05:10 Red Blood Count 4.22 MIL/MM3 (4.50-5.90) Monocytes (%) (Auto) 9.9 % (0.0-8.0) Monocytes # (Auto) 1.1 TH/MM3 (0-0.9) Chloride Level 108 MEQ/L (98-107) Total Bilirubin 1.1 MG/DL (0.2-1.0) Indirect Bilirubin 1.0 MG/DL (0.0-0.8) Alanine Aminotransferase 109 U/L (12-78) (ALT/SGPT) Total Protein 6.0 GM/DL (6.4-8.2) Albumin 3.1 GM/DL (3.4-5.0) Imaging Last Impressions Chest X-Ray 06/10/16 2309 Signed Impressions: Service Date/Time: Friday, June 10, 2016 23:11 - CONCLUSION: No acute disease. Jermaine Santos MD Pt update on day of discharge No chest pain, no shortness of breath. Right radial pulses are intact. No nausea or vomiting. Hospital Course This is a pleasant 56-year-old male patient who denies prior medical history. Does smoke cigarettes proximal one pack per day and has a family medical history his mother had a coronary artery bypass graft at 51 years old. Patient is currently here on vacation from [place] but he awoke from sleep with severe midsternal chest pain associated with bilateral upper extremity numbness, SOB and diaphoresis hence admission. EKG showed ST elevation, initial troponin was negative. Troponin max is 3.28, patient was started on heparin drip, cardiology was consulted emergently, patient went for left heart catheterization , had a stent placed in the LAD with 90% blockage. Patient was sore and aspirin , but into, statin, and beta blockers. If insurance will not cover Brilinta, patient would need to be on Plavix at the very least. Echocardiogram which is done which showed an ejection fraction of 55-60%. Patient doing well after cardiac catheterization, patient discharged after clearance from cardiology. Patient was discharge after seen and cleared by cardiology Pt Condition on Discharge: Good Discharge Disposition: Discharge Home Discharge Time: > 30 minutes Discharge Instructions DIET: Follow Instructions for: Heart Healthy Diet Activities you can perform: Regular-No Restrictions Follow up Referrals: PCP Follow-up - 1 Week New Medications: Atorvastatin (Atorvastatin) 80 Mg Tab 80 MG PO HS cardio #30 TAB Carvedilol (Coreg) 3.125 Mg Tab 3.125 MG PO Q12HR CAD #60 TAB Lisinopril (Lisinopril) 5 Mg Tab 5 MG PO DAILY CAD #30 TAB Ticagrelor (Brilinta) 90 Mg Tab 90 MG PO BID CAD #60 TAB ([Aspirin Chew]) 81 MG CHEW 81 MG PO DAILY #30 TAB.CHEW Ilsa Ramirez MD Jun 12, 2016 16:01
--- NOTE | 2016-06-13 08:10 | MA ---
cc: JOSE RAUL PAULINO DO DATE 06/11/2016 PROCEDURE Left heart catheterization, coronary angiogram, placement of a Synergy drug-eluting stent (3 x 24) to the proximal LAD, moderate sedation 75 minutes. PREPROCEDURE DIAGNOSIS NSTEMI, chest pain. POSTPROCEDURE DIAGNOSIS NSTEMI, placement of a Synergy drug-eluting stent (3 x 24) to the LAD. MEDICATIONS 1. Versed 1 mg 2. Fentanyl 50 mcg. 3. Heparin 6000 units 4. Vancomycin 1 gram 5. Brilinta 180 mg CONTRAST 100 cc FLUOROSCOPY 15.4 minutes ANESTHESIA Moderate sedation 75 minutes ESTIMATED BLOOD LOSS 10 CC PROCEDURE Jermaine Maradiaga is a pleasant 56-year-old male who presented to [facility] emergency room with chest pain. He was found to have elevation of his troponins and because of this, he was recommended coronary angiography. The risks, benefits and alternatives were explained to him and he consented as such. He was brought to the lab and prepped in the usual sterile fashion. The right radial artery was accessed using a modified Seldinger technique and placement of a 5/6 slender sheath. A JR-4 catheter was then advanced to the ascending aorta and used for a selective angiography of the right coronary system. This was exchanged for a JL-3.5 catheter which was used for selective angiography of the left coronary system. Please see note below for intervention. After the procedure, the guide catheter was removed and placement of a TR band for hemostasis across the radial arteriotomy site. The patient left the oil field laborer cardiovascularly stable. Left main is a normal-appearing vessel with adequate reflux and 10% disease. It gives off an LAD and circumflex. LAD proximal portion has tandem lesions of 90 and 80%. The distal portion of the LAD appears relatively normal in nature. It does give off one significant diagonal that does not appear to have significant disease throughout. Left circumflex artery is a normal-appearing vessel with 10-20% in the proximal portion. It gives off one major obtuse marginal that does not appear to have significant disease throughout. Right coronary artery is a dominant vessel which has a 20% lesion in proximal and distal portion, but does not appear to have significant disease. INTERVENTION It was felt that the LAD with its two proximal significant lesions was a culprit vessel for his NSTEMI. The patient was given heparin as an anticoagulant. The JL-3.5 was exchanged for an EBU 3.5 guide. A BMW wire was advanced into the distal portion of the LAD. A compliant balloon (2.5 x 15) was used to dilate both lesions. A Synergy drug-eluting stent (3 x 24) was then placed across both lesions and inflated. After removal of the stent balloon, Mr. Maradiaga was having some chest pain and this was felt to be due to distal spasm. 200 mcg of nitroglycerin were given intracoronary. A noncompliant balloon (3 x 12) was then used to appose the stent to the vessel wall. Final shots show a well opposed stent with no dissection or perforation. The wire and guide catheter were then removed. The patient was given 180 mg of Brilinta in the lab. He left the oil field laborer cardiovascularly stable. IMPRESSION 1. NSTEMI, chest pain concerning for coronary insufficiency. 2. Significant disease of tandem lesions of his proximal LAD status post Synergy drug-eluting stent (3 x 24) RECOMMENDATIONS 1. Mr. Maradiaga will be placed on aspirin, Brilinta, statins and beta-leticia therapy. He was instructed that he needs to stay on aspirin indefinitely and Brilinta for least 12 months. 2. He was given a card for a free 30 days of Brilinta and instructed that when he gets home to [place] that he needs to check on the culp of refills. If it is too expensive, then he should call his primary care physician or myself and be switched to Plavix. 3. We will check a 2-D echo to look at his overall left ventricular function, cardiac structure and possible valvulopathies. 4. If stable overnight, he will be discharged in the morning. 5. I did speak to him for greater than three minutes about tobacco cessation for which he states he is going to quit. Thank you for allowing me to see Jermaine Maradiaga. If there are any questions, please do not hesitate to call. Jose Raul Paulino DO VGP/DJL /8:35 PM /7:51 AM
== END 2016-06-12 11:48 | disposition home or self-care (01) | DRG 247 ==
LOC: NEPC 22:36 → NEDA 06-11 00:58 → NEDH 06-11 05:25 → HCIS 06-11 10:09
PROVIDERS: ADMIT Hospitalist; ATTEND Hospitalist
PROC: 4A023N7 Measurement of Cardiac Sampling and Pressure, Left Heart, Percutaneous Approach (ICD-10-PCS; 2016-06-11)
PROC: B211YZZ Fluoroscopy of Multiple Coronary Arteries using Other Contrast (ICD-10-PCS; 2016-06-11)
PROC: 027034Z Dilation of Coronary Artery, One Artery with Drug-eluting Intraluminal Device, Percutaneous Approach (ICD-10-PCS; principal; 2016-06-11 15:00)
DX: I21.4 Non-ST elevation (NSTEMI) myocardial infarction (principal); F17.210 Nicotine dependence, cigarettes, uncomplicated; I25.110 Atherosclerotic heart disease of native coronary artery with unstable angina pectoris
CPT/HCPCS: 71010; 80048; 80053; 80061; 80076; 82550; 82552; 83735; 83880; 84484; 85002; 85025; 85379; 85610; 85730; 92928; 93005; 93306; 93454; 96365; 96374; 96375; C1725; C1769; C1874; C1887; C1893; J1644; J2250; J2405; J3010; J3370; J7030; J7050; Q9967